=== PATIENT | male | born 1990 | race African-American/Black ===

== ENCOUNTER 2017-05-26 09:16 | Emergency (ER) | payer MEDICAID ==
[~2017-05-26] VITALS: Ht 165.1 cm; Wt 73.0 kg
[2017-05-26 09:52] VITALS: BP 127/89
[2017-05-26] MEDS ORDERED: PROPARACAINE HCL 0.5% OPTH(EYE) SOL 15ML OP ONE (10:15)
[2017-05-26] MEDS ORDERED: FLUORESCEIN SOD 1 MG TEST STRIP EACHEYE ONE (10:15)
== END 2017-05-26 10:32 | disposition home or self-care (01) ==
LOC: ER 09:16
DX: S05.02XA Injury of conjunctiva and corneal abrasion without foreign body, left eye, initial encounter (principal); X58.XXXA Exposure to other specified factors, initial encounter; Y93.89 Activity, other specified; Y92.096 Garden or yard of other non-institutional residence as the place of occurrence of the external cause; Y99.8 Other external cause status